=== PATIENT | female | born 1960 | race Caucasian/White ===

== ENCOUNTER → 2023-08-21 13:35 | Outpatient (REF) | payer OTHER, SELFPAY | LOC: WDC 13:35 | PROVIDERS: ATTENDING PHYSICIAN Family Medicine | DX: Z78.0 Asymptomatic menopausal state (principal); Z12.31 Encounter for screening mammogram for malignant neoplasm of breast | CPT/HCPCS: 77063; 77067; 77080 ==

== ENCOUNTER 2023-10-04 11:47 | Emergency (ER) | payer OTHER, SELFPAY ==
[2023-10-04 12:02] VITALS: BP 132/86; BMI 31.8
[2023-10-04 12:41] LABS: % Basophils 0.7 % (0-2); % Eosinophils 3.2 % (0-6); % Immature Granulocytes 0.5 % (0-0.5); % Lymphocytes 19.3 % (20.5-51.1); % Monocytes 4.9 % (1.7-9.3); % Neutrophils 71.4 % (42.2-75.2); Absolute Basophils 0.1 10^3/uL (0-0.2); Absolute Eosinophils 0.3 10^3/uL (0-0.7); Absolute Immature Granulocytes 0.1 10^3/uL (0-0.05); Absolute Lymphocytes 1.9 10^3/uL (1.2-3.4); Absolute Monocytes 0.5 10^3/uL (0.1-0.6); Absolute Neutrophils 6.9 10^3/uL (1.4-6.5); Hematocrit 37.9 % (37.0-47.0); Mean Corp Hgb Conc. 34.3 g/dL (33.0-37.0); Mean Corpuscular Hgb 29.5 pg (27.0-31.0); Mean Corpuscular Volume 85.9 fL (81.0-99.0); Mean Platelet Volume 10.6 fL (7.4-10.4); Nucleated Red Blood Cells % 0 %; Platelet Count 284 10^3/uL (130-400); Red Blood Cell Count 4.41 10^6/uL (4.20-5.40); Red Cell Dist. Width 13.6 % (11.5-14.5); White Blood Cell Count 9.7 10^3/uL (4.8-10.8)
[2023-10-04 12:55] LABS: ALT (SGPT) 10 U/L (0-35); AST (SGOT) 17 U/L (14-36); Albumin 4.3 g/dl (3.5-5.0); Alkaline Phosphatase 125 U/L (38-126); Blood Urea Nitrogen 18 mg/dl (7-17); Calcium 9.4 mg/dl (8.4-10.2); Carbon Dioxide 23 mmol/L (22-30); Chloride 107 mmol/L (98-107); Estimated Creatinine Clearance 65 ml/min; Glucose 99 mg/dl (70-99); Potassium 3.9 mmol/L (3.5-5.1); Sodium 140 mmol/L (135-145); Total Bilirubin 0.8 mg/dl (0.2-1.3); Total Protein 6.6 g/dl (6.3-8.2); eGFR > 60.00
[2023-10-04 13:04] LABS: Troponin I < 0.012 ng/ml
[2023-10-04 13:22] VITALS: BP 117/70
[2023-10-04 14:00] VITALS: BP 112/58
--- NOTE | 2023-10-04 14:45 | ED.GENMED ---
History of Present Illness
General
Chief Complaint: Cardiac Symptoms
Time Seen by Provider: 10/04/23 14:09
History of Present Illness
History of Present Illness:
63-year-old female with history of GERD presenting to the emergency department for concern of elevated heart rate. Patient reports around 1:30 AM last night her heart rate was jumping up and down, went as high as 140. She has an moni on her phone
which detected that it was elevated. She reports strong family history of cardiac disease in her family, CHF in her mother. Denies any known history of cardiac disease. Denies any history of A-fib. She was feeling palpitations at the time.
Reports that her symptoms have since resolved. Denies any associated chest pain or difficulty breathing. Denies any abdominal pain or GI symptoms. Does report that she takes an Ativan daily, however denies any increase anxiety. She does not
follow with cardiology. She believes that this has happened to her in the past, however was never evaluated for it. Denies additional acute medical complaints.
Past History
Past History
ED Past Medical History: Asthma, Fibromyalgia, GERD and Other (Rheumatoid Arthritis, Fibromyalgia, IBS); Negative IDDM
ED Past Surgical History: Appendectomy, Cholecystectomy and Gynecological
Social History
Tobacco: Non-smoker
Alcohol: None
Drug: None
Personal:
Living: with family
Employment: Employed
Family History
Family History: Hypertension
Phy Exam
Physical Exam
Physical Exam:
General: Well-appearing, no clinical signs of dehydration, nontoxic and in no acute distress
HEENT: protecting airway
Neck: appears supple
CV: Normal heart rate, regular rhythm, no evidence of cyanosis
Resp: No accessory muscle use, no increased work of breathing, lungs clear to auscultation bilaterally
Abd: Soft and non-distended, no tenderness to palpation, normal bowel sounds
Extremities: No deformities, no swelling, no erythema
Neuro: alert, no focal neurologic deficit
: deferred
Rectal: deferred
Psych: Normal affect
Skin: Intact
Course
Orders/Labs/Results
Orders:
Orders
10/04/23 12:04
Electrocardiogram (*1) Urgent
Reason for Study: Chest Pain
EKG- Treatment ONCE
10/04/23 12:20
Complete Blood Count/With Diff Urgent
Comprehensive Metabolic Panel Urgent
Troponin I Urgent
Abnormal Lab Results
10/04/23
12:20
MPV 10.6 H fL
(7.4-10.4)
Abs Immat Gran (auto) 0.1 H 10^3/uL
(0-0.05)
Absolute Neuts (auto) 6.9 H 10^3/uL
(1.4-6.5)
Lymphocytes % 19.3 L %
(20.5-51.1)
BUN 18 H mg/dl
(7-17)
10/04/23 12:20
10/04/23 12:20
Vital Signs
Initial and Last Documented VS:
Initial Vital Signs
Temp Pulse Resp BP Pulse Ox
98.2 F 93 16 132/86 98
10/04/23 12:02 10/04/23 12:02 10/04/23 12:02 10/04/23 12:02 10/04/23 12:02
Last Documented Vital Signs
Temp Pulse Resp BP Pulse Ox
98.2 F 82 17 108/57 97
10/04/23 12:02 10/04/23 15:00 10/04/23 15:00 10/04/23 15:00 10/04/23 13:22
MDM/Problems Addressed
MDM/Problems Addressed:
63-year-old female with history of GERD presenting for concern of elevated heart rate and palpitations earlier this morning. Vital signs on arrival are normal.
Patient well-appearing on examination with unremarkable cardiac and pulmonary exam. Heart rate within normal limits. Patient had an EKG upon arrival, sinus rhythm, no evidence of arrhythmia or atrial fibrillation. Patient arrives with information
on her moni on her phone, does display that her heart rate was elevated to 140, however does not show what rhythm her heart was in. For this reason, cannot assess if patient was in A-fib. Regardless, patient is in sinus, asymptomatic. Patient and
nursing protocol obtained prior to my assessment, unremarkable laboratory analysis, normal electrolyte panel, undetectable troponin. Patient remains asymptomatic. Heart rate remains controlled. At this time feel that she is stable for discharge,
however with close interval follow-up with cardiology for potential Holter monitoring. Will provide information for cardiology. Patient in agreement with plan. Strict return precautions were communicated to patient and patient verbalized
understanding.
*EKG
Interpreted by ED Provider?: Yes
EKG Intrepretation Date: 10/04/23
EKG Intrepretation Time: 14:47
Interpretation: normal
Comparison EKG: no changes
Heart Rate: 91
Rate: normal
Rhythm: sinus
[place]: normal axis
Interval: normal interval
QRS Pattern: normal QRS
Ischemia: no ischemia
*Critical Care Note
Total Time (30-74mins, 75-104mins- exclusive of procedures): Not Applicable
ED Attending Note
-
Portions of this chart may have been created with voice recognition software.� Occasional wrong word or��sound alike� substitutions may have occurred due to the inherent limitations of voice recognition software.
Discharge Plan
Departure
Patient Disposition: Home (Routine Discharge)
Date of Disposition: 10/04/23
Time of Disposition: 14:49
Patient with high blood pressure during this ER visit?: No
Condition: Good
Discharge Problem:
Heart palpitations
Instructions: Palpitations ED
Prescriptions:
No Action
zolpidem 10 MG tablet
10 mg PO HSPRN PRN (Reason: sleep)
Patient Comments:
04/10/2021: last filled 04/09/21, 30 tabs for 30 days from [id number]
cyanocobalamin (vitamin B-12) 1,000 MCG tablet
1,000 mcg PO DAILY
omeprazole 40 MG capsule,delayed release(DR/EC)
40 mg PO BID
alprazolam 1 MG tablet
1 mg PO DAILY
Patient Comments:
04/10/2021: last filled 04/09/21, 30 tabs for 30 days from [id number]
tramadol 50 MG tablet
50 mg PO Q6HPRN PRN (Reason: moderate pain)
Patient Comments:
04/10/2021: last filled 04/09/21, 120 tabs for 30 days from [id number]
sertraline 50 MG tablet
50 mg PO DAILY
cholecalciferol (vitamin D3) 2,000 UNITS tablet
4,000 units PO DAILY
prochlorperazine maleate 10 MG tablet
10 mg PO Q6HPRN PRN (Reason: nausea) Qty: 30 0RF
dicyclomine 20 MG tablet
20 mg PO QIDPRN PRN (Reason: nausea, abd pain) Qty: 30 0RF
Referrals:
Edward Landaverde MD [Active] - (Palpitations, elevated heart rate)
Ivana Jackson MD [Family Provider] -
Activity Restrictions/Additional Instructions:
You were seen in the emegency department for palpitations
You were found to have a normal heart rate and EKG
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
Return to the emergency department for any worsening of your symptoms, or any development of chest pain, persistently elevated heart rate with palpitations, difficulty breathing, abdominal pain with persistent vomiting and inability to tolerate food
or liquid by mouth (concern for dehydration), weakness, headache or confusion, fever greater than 100.4, or any additional symptoms that are concerning to you.
Thank you for choosing [facility].
Interventions
Interventions:
*Risk Screen - Suicide Last Done: 10/04/23 12:02
*General Assessment Last Done: 10/04/23 13:19
*Neglect/Abuse Screening Last Done: 10/04/23 12:02
ED- Fall Risk Assessment Last Done: 10/04/23 15:08
*ED COVID-19 Vaccine History Last Done: 10/04/23 13:19
*Nursing Disposition Last Done: 10/04/23 15:08
ED- Pulmonary Assessment Last Done: 10/04/23 13:19
ED- Cardiac Assessment Last Done: 10/04/23 13:19
Discharge Date and Time
Discharge Date/Time: 10/04/23 15:09
Print Language: ALBANIAN
[2023-10-04 15:00] VITALS: BP 108/57
== END 2023-10-04 15:09 | disposition home or self-care (01) ==
LOC: EMR 11:47
PROVIDERS: Student in an Organized Health Care Education/Training Program; EMERGENCY PHYSICIAN Student in an Organized Health Care Education/Training Program; FAMILY PHYSICIAN Family Medicine
DX: R00.2 Palpitations (principal); K21.9 Gastro-esophageal reflux disease without esophagitis
CPT/HCPCS: 99284; 80053; 84484; 85025; 93005

== ENCOUNTER → 2023-10-20 08:52 | Outpatient (REF) | payer OTHER, MEDICARE, SELFPAY | LOC: HWRCS 08:52 | PROVIDERS: ATTENDING PHYSICIAN Family Medicine | DX: R00.2 Palpitations (principal) | CPT/HCPCS: 93225; 93226; 93306 ==